=== PATIENT | male | born 1950 | race Hispanic/Latino ===

== ENCOUNTER 2017-04-17 07:24 | Day surgery (SDC) | payer MEDICARE, OTHER ==
[2017-04-17] MEDS ORDERED: Propofol 10 mg/ml Inj (20 ML) ONE (10:00)
--- NOTE | 2017-04-17 10:07 | CP.SDSHP ---
Same Day Surgery H & P - History Proposed Procedure: COLONSCIOY Pre-Op Diagnosis: SEE NOTES - Previous Medical/Surgical History Neuro: Backaches Pain: 2.Mild Pain - Allergies Allergies: Allergies No Known Allergies Allergy (Verified 04/17/17 08:11) - Physical Exam General Appearance: N Vital Signs: Vital Signs 04/17/17 08:00 Temperature 98.6 F Pulse Rate 69 Respiratory 19 Rate Blood Pressure 136/66 O2 Sat by Pulse 97 Oximetry Mental Status: Alert & Oriented x3 Neuro: WNL Heart: WNL Lungs: WNL GI: WNL - {Optional Preform as Required} Breast: WNL Abdomen: Other Rectal: WNL Integument: WNL : WNL Ortho: Other ENT: WNL - Impression Pt. Evaluated Today:Candidate for Anesthesia & Procedure: Yes - Date & Time Time: 10:08 Short Stay Discharge - Short Stay Discharge Admitting Diagnosis/Reason for Visit: COLON SCREENING Disposition: HOME/ ROUTINE
[2017-04-17] MEDS ORDERED: Lactated Ringer's 1,000 ML IV ONE ×2 (10:10)
[2017-04-17] MEDS ORDERED: Belladonna-Phenobarbital PO ONE (10:45)
[2017-04-17 10:58] VITALS: O2SAT 100
[2017-04-17 14:52] VITALS: BP 111/72; PULSE 50; RESP 12; TEMP 97
== END 2017-04-17 14:00 | disposition home or self-care (01) ==
LOC: C.ENDO 07:24
PROVIDERS: ATTEND Specialist
DX: Z12.11 Encounter for screening for malignant neoplasm of colon (principal); K64.4 Residual hemorrhoidal skin tags; K64.8 Other hemorrhoids; K57.30 Diverticulosis of large intestine without perforation or abscess without bleeding
CPT/HCPCS: 45380; 88305; J2704; J7120

== ENCOUNTER 2018-02-26 12:39 | Outpatient (CLI) | payer MEDICARE, OTHER | END 2018-02-26 12:40 | disposition home or self-care (01) | LOC: C.MRIC 12:40 ==

== ENCOUNTER 2018-03-10 11:58 | Outpatient (CLI) | payer MEDICARE, OTHER | END 2018-03-10 11:59 | disposition home or self-care (01) | LOC: C.PAT 11:58 | DX: R22.40 Localized swelling, mass and lump, unspecified lower limb (principal) ==

== ENCOUNTER → 2018-03-16 | Day surgery (SDC) | payer MEDICARE, OTHER ==
[2018-03-10 12:23] VITALS: BMI 21.8
[~2018-03-16] MED LIST: Bupivacaine 0.25% 20 ML INJ IJ ONE; Lidocaine/Epinephrine 1% 1:100000 10 ML IJ ONE; Midazolam 2 MG/2 ML VIAL ONE; ceFAZolin 1 gm in NS 1 GM/100 ML BAG IVPB ONE
--- NOTE | 2018-03-16 11:49 | PCM.SURG1 ---
Surgeon's Initial Post Op Note - Surgeon's Notes Surgeon: Dr. Sandoval Kersey Department Supervisor: Dr. Natarajan Type of Anesthesia: IV Sedation, Local Pre-Operative Diagnosis: Left thigh lesion Operative Findings: see operative note Post-Operative Diagnosis: same Operation Performed: removal of left thigh lesion Specimen/Specimens Removed: soft tissue mass Estimated Blood Loss: EBL {In ML}: 5 Blood Products Given: N/A Drains Used: No Drains Post-Op Condition: Good Date of Surgery/Procedure: 03/16/18 Time of Surgery/Procedure: 11:49
[2018-03-16 11:54] VITALS: O2SAT 100
[2018-03-16 12:12] VITALS: PULSE 72; RESP 17; TEMP 98.4
[2018-03-16 12:45] VITALS: BP 123/71
--- NOTE | 2018-03-16 21:21 | OP ---
PROCEDURE DATE: 03/16/2018 PREOPERATIVE DIAGNOSIS: Left thigh lesion. POSTOPERATIVE DIAGNOSIS: Intramuscular lipoma of left thigh, approximately 4 x 3 cm size. PROCEDURES: 1. Excision of the intramuscular lipoma of the left thigh. 2. Layered closure of the wound. SURGEON: Yevgeniy Hussein MD TYPE OF ANESTHESIA: Local anesthesia plus sedation. ESTIMATED BLOOD LOSS: Around 10 mL. DRAINS: None. PATHOLOGY: The lipoma was sent to the pathology. COMPLICATIONS: None. INTRAOPERATIVE FINDINGS: The patient had intramuscular subfascial lipoma of the left lateral mid thigh, approximately 3 x 4 cm size. DESCRIPTION OF PROCEDURE: On intraoperative steps, this is a 68-year-old male who was diagnosed with a left thigh lesion and the patient was consented for excision of the left thigh lesion, brought to the OR, placed in right lateral position. The left thigh was prepped and draped. Local anesthesia was injected. A transverse incision was made. Upper and lower flaps were created. The tensor fascia rosangela was divided and a flat large lipoma was identified. The lipoma was also extending into the underlying muscle and the lipoma was completely excised and it was sent off the table for the pathology. There was proper hemostasis in each and every part of the procedure. The wound was irrigated. Now, the upper and lower flaps were sutured to the underlying facia and muscle. The tensor fascia rosangela was also sutured with multiple interrupted sutures, deep subcu with 2-0 Vicryl, superficial subcu with 3-0 Vicryl, and skin with 4-0 Monocryl and dry sterile dressings were applied. The patient tolerated procedure well. Count of instrument and gauze was correct. There was no apparent complication. The patient was reversed from sedation and sent to the postanesthesia care unit in stable condition. Yevgeniy Hussein MD
== END | disposition home or self-care (01) ==
LOC: C.SDS 07:31
PROVIDERS: ATTEND Surgery Surgical Critical Care
DX: D17.24 Benign lipomatous neoplasm of skin and subcutaneous tissue of left leg (principal)
CPT/HCPCS: 11406; 12032; 88304; J0690; J2250; J3010